=== PATIENT | female | born 1960 | race Caucasian/White ===

== ENCOUNTER 2025-02-01 09:34 | Outpatient (CLI) | payer OTHER | END 2025-02-01 09:39 | disposition home or self-care (01) | LOC: SONOGRAMA 09:34 | DX: N85.00 Endometrial hyperplasia, unspecified (principal) ==

== ENCOUNTER 2025-02-15 12:09 | Outpatient (CLI) | payer OTHER ==
[2025-02-15 13:56] LABS: CREATININE SERUM 1.14 mg/dL (0.55-1.02)
== END 2025-02-15 12:13 | disposition home or self-care (01) ==
LOC: LAB 12:09
PROVIDERS: ATTEND Radiology Diagnostic Radiology
DX: R31.21 Asymptomatic microscopic hematuria (principal)

== ENCOUNTER 2025-02-20 07:11 | Outpatient (CLI) | payer OTHER | END 2025-02-20 07:17 | disposition home or self-care (01) | LOC: MRI 07:11 | PROVIDERS: ATTEND Obstetrics & Gynecology Gynecology | DX: R31.21 Asymptomatic microscopic hematuria (principal); R93.429 Abnormal radiologic findings on diagnostic imaging of unspecified kidney | CPT/HCPCS: 72197; 74183; Q9965 ==